=== PATIENT | female | born 1965 | race Caucasian/White ===

== ENCOUNTER 2024-08-11 12:50 | Emergency (ER) | payer OTHER, SELFPAY ==
[2024-08-11 12:51] VITALS: BP 167/96
--- NOTE | 2024-08-11 14:15 | ED.GENMED ---
History of Present Illness
General
Chief Complaint: Musculo-Skeletal Complaint
Source: patient
Time Seen by Provider: 08/11/24 14:00
History of Present Illness
History of Present Illness:
58-year-old female with past medical history of asthma presenting to the emergency department for evaluation after she slipped on her stairs this past Thursday, fell into the top step on her left posterolateral rib area, notes contusion and pain
especially with deep inspiration. Patient has been taking anti-inflammatories for relief but states still having discomfort. No other injuries were sustained. Pain is mostly constant, worse with deep inspiration and movement and a
aching/intermittently sharp pain. Denies any shortness of breath otherwise.
Past History
Past History
ED Past Medical History: Asthma
ED Past Surgical History: and Gynecological
Social History
Tobacco: Non-smoker
Alcohol: None
Drug: None
Personal:
Living: with family
Review of Systems
Review of Systems
All Other Systems: ROS reviewed and negative except as documented in HPI and ROS
Phy Exam
Physical Exam
Physical Exam:
GENERAL: Alert , in no apparent distress but does appear uncomfortable with movements
EYE: conjunctiva clear
NECK: Supple, no significant adenopathy.
ENT: o/p clr, mmm.
CARDIAC: Regular rate and rhythm
LUNGS: Clear breath sounds bilaterally, no acute respiratory distress, no wheezes/rales/rhonchi
CHEST WALL: There is moderate contusion with tenderness over the left posterolateral rib approximately between the 6th and 7th rib
NEUROLOGICAL: Alert and oriented
SKIN: Warm and dry, skin intact.
MUSCULOSKELETAL: well perfused.
PSYCH: Normal and appropriate interaction.
Scores
Heart Failure Risk
Heart Failure Risk Score: Not Applicable
Heart Score for Chest Pain Patients
STEMI patient?: Not applicable
Withdrawal Assessment of Alcohol
Withdrawal Assessment Completed?: Not applicable
Course
Orders/Labs/Results
Orders:
Orders
08/11/24 12:54
Ribs, Left 3 View W/PA Chest CR [CR Ribs-left 3 Vw W/pa Chest] Urgent
Comment:
Reason For Exam: fall with rib pain
Vital Signs
Initial and Last Documented VS:
Initial Vital Signs
Temp Pulse Resp BP Pulse Ox
97.8 F 78 18 167/96 97
08/11/24 12:51 08/11/24 12:51 08/11/24 12:51 08/11/24 12:51 08/11/24 12:51
Last Documented Vital Signs
Temp Pulse Resp BP Pulse Ox
97.8 F 78 18 167/96 97
08/11/24 12:51 08/11/24 12:51 08/11/24 12:51 08/11/24 12:51 08/11/24 12:51
MDM/Problems Addressed
Differential Diagnosis Includes:
Rib contusion, rib fracture, pneumothorax, hemothorax
MDM/Problems Addressed:
58-year-old female presenting to the ER for evaluation following an accidental fall this past Thursday. Fall resulted in what appears to be left posterolateral rib contusion. X-ray of the ribs was ordered on arrival showing no acute fracture, no
pneumothorax or hemothorax. Discussed with patient that there could still be a possibility of a small nondisplaced rib fracture but that further imaging would be unlikely to change patient's treatment plan or disposition. Patient feels comfortable
foregoing CT imaging. Offered incentive spirometer however patient declines. Will send for a prescription of Percocet to pharmacy to be used as needed. Encourage patient to also buy stool softener for potential side effect of constipation. Aware
of return precautions to the ER but otherwise stable for discharge.
*Radiology
Radiology exam reviewed: preliminary read by ED provider (No acute rib fracture)
*Pulse Oximetry
Patient hypoxic: no
*Critical Care Note
Total Time (30-74mins, 75-104mins- exclusive of procedures): Not Applicable
ED Attending Note
-
Portions of this chart may have been created with voice recognition software.� Occasional wrong word or��sound alike� substitutions may have occurred due to the inherent limitations of voice recognition software.
Discharge Plan
Departure
Patient Disposition: Home (Routine Discharge)
Date of Disposition: 08/11/24
Time of Disposition: 14:15
Patient with high blood pressure during this ER visit?: Yes
Discharge Problem:
Contusion of rib on left side
Instructions: Rib fracture or bruised rib - ED discharge instructions
Prescriptions:
New
oxycodone-acetaminophen [Percocet] 5-325 mg tablet
1 tab PO Q6HPRN PRN (Reason: pain) Qty: 8 0RF
Interventions
Interventions:
*Risk Screen - Suicide Last Done: 08/11/24 12:51
*General Assessment Last Done: 08/11/24 12:51
*Neglect/Abuse Screening Last Done: 08/11/24 12:51
*ED COVID-19 Vaccine History Last Done: 08/11/24 14:13
*Nursing Disposition Last Done: 08/11/24 14:17
ED-Musculoskeletal Assessment Last Done: 08/11/24 14:13
Discharge Date and Time
Discharge Date/Time: 08/11/24 14:27
Print Language: DANISH
== END 2024-08-11 14:27 | disposition home or self-care (01) ==
LOC: EMR 12:50
PROVIDERS: EMERGENCY PHYSICIAN Emergency Medicine; FAMILY PHYSICIAN Physician Assistant
DX: S20.212A Contusion of left front wall of thorax, initial encounter (principal); W01.0XXA Fall on same level from slipping, tripping and stumbling without subsequent striking against object, initial encounter; R07.81 Pleurodynia; J45.909 Unspecified asthma, uncomplicated
CPT/HCPCS: 99283; 71101